=== PATIENT | male | born 1975 | race American Indian/Alaskan Native ===

== ENCOUNTER 2021-02-20 10:47 | Outpatient (CLI) | payer OTHER ==
--- NOTE | 2021-02-20 13:02 | XRay Report ---
LEFT FEMUR HISTORY: Pain COMPARISON: None. TECHNIQUE: 2 views of the right femur were obtained. FINDINGS: Bones: No fracture or dislocation. Joint spaces: Maintained. Soft tissues: No significant abnormality. Additional findings: Small rectangular radiopaque structure is noted on all images, felt to represent cassette artifact as it is in the relatively same position on each image. IMPRESSION: Unremarkable left femur radiographs. No acute osseous injury or significant degenerative change. Signer Name: Jose Lorenz MD Signed: 02/20/2021 12:57 PM Workstation Name: [id number]
--- NOTE | 2021-02-20 13:04 | XRay Report ---
BILATERAL SHOULDER HISTORY: Pain. COMPARISON: None. TECHNIQUE: 3 views of the bilateral shoulders were obtained. FINDINGS Bones: No fracture or dislocation. Right shoulder arthroplasty is present. The hardware appears inta ct without evidence of hardware failure. Joint spaces: Maintained. Soft tissues: No significant abnormality. Additional findings: None. IMPRESSION: Right shoulder arthroplasty without evidence of acute osseous injury or findings to suggest the prese nce of hardware failure. Left shoulder is unremarkable. Signer Name: Jose Lorenz MD Signed: 02/20/2021 12:59 PM Workstation Name: [id number]
--- NOTE | 2021-02-20 13:06 | XRay Report ---
BILATERAL KNEES HISTORY: Bilateral knee pain COMPARISON: None. TECHNIQUE: 3 views of both knees were obtained. FINDINGS: Bones: No fracture or dislocation. Joint spaces: Maintained. Soft tissues: No significant abnormality. Additional findings: Small rectangular radiopaque structure is noted on all images, most consistent w ith cassette artifact. IMPRESSION: Unremarkable knee radiographs. No evidence of acute osseous injury or significant degenerative change . Signer Name: Jose Lorenz MD Signed: 02/20/2021 1:02 PM Workstation Name: [id number]
== END 2021-02-20 10:48 | disposition home or self-care (01) ==
LOC: XRAY 10:47
PROVIDERS: ATTEND Internal Medicine
DX: M25.562 Pain in left knee (principal); M25.561 Pain in right knee; M79.662 Pain in left lower leg; Z96.611 Presence of right artificial shoulder joint